=== PATIENT | male | born 1985 | race Caucasian/White ===

== ENCOUNTER 2020-11-01 09:46 | Emergency (ER) | payer OTHER ==
[2020-11-01 09:51] VITALS: RESP 18
--- NOTE | 2020-11-01 09:53 | ED ---
General Adult HPI - General Chief complaint: Dizziness Stated complaint: Headache, Dizziness Time Seen by Provider: 11/01/20 09:52 Source: patient Mode of arrival: ambulatory Limitations: no limitations - History of Present Illness Initial comments: 35yo male presenting for headahces. pt states that he has felt like he has "the flu without congestion" he states for the past 3 days he has been sleeping more, has some body aches. He states that he has had headaches, he states they are the wrost headaches he has had because he never has had headaches. Denies neck stiffness of fevers. Pt denies sudden onset of headache, pt denies stroke like symptoms such as speech or vision changes, sensation deficits, weakness of the extremities, or facial asymmetry. Patient states he feels light headed at times. Denies sensation that room is spinning, denies feeling off balance. Pt denies additional complaints he appears nontoxic on arrival no acute distress. headache currently 3/10 he states its very mild. - Related Data Home Medications Medication Instructions Recorded Confirmed No Known Home Medications 11/01/20 11/01/20 Allergies Allergy/AdvReac Type Severity Reaction Status Date / Time Sulfa (Sulfonamide Allergy Rash/Hives Verified 11/01/20 09:51 Antibiotics) Review of Systems ROS Statement: Those systems with pertinent positive or pertinent negative responses have been documented in the HPI. ROS Other: All systems not noted in ROS Statement are negative. Past Medical History Past Medical History: No Reported History History of Any Multi-Drug Resistant Organisms: None Reported Past Surgical History: Hernia Repair Past Psychological History: ADD/ADHD Smoking Status: Never smoker Past Alcohol Use History: None Reported Past Drug Use History: Marijuana General Exam - General Exam Comments Initial Comments: General: The patient is awake and alert, in no distress Eye: + 3mm pupils are equal, round and reactive to light, extra-ocular movements are intact. No nystagmus. There is normal conjunctiva bilaterally. No signs of icterus. Ears, nose, mouth and throat: There are moist mucous membranes and no oral lesions. Neck: The neck is supple, there is no tenderness or JVD. No nuchal rigidity. (-) brudzinskis and kernig Cardiovascular: There is a regular rate and rhythm. No murmur, rub or gallop is appreciated. Respiratory: Lungs are clear to auscultation, respirations are non-labored, breath sounds are equal. No wheezes, stridor, rales, or rhonchi. Gastrointestinal: Soft, non-distended, non-tender abdomen without masses or organomegaly noted. There is no rebound or guarding present. Musculoskeletal: Normal ROM, no tenderness. Strength 5/5. Sensation intact. Radial pulses equal bilaterally 2+. Neurological: A&O x 3. CN II-XII intact, no pronator drift, strength of UE and LE 5/5+ b/l veyr strong and equal. Gait without ataxia. Speech is normal. Skin: Skin is warm and dry and no rashes or lesions are noted. Psychiatric: Cooperative, appropriate mood & affect, normal judgment. Limitations: no limitations Course Vital Signs 11/01/20 11/01/20 11/01/20 09:47 11:15 12:00 Temperature 98.7 F 98.2 F Pulse Rate 73 75 76 Respiratory 18 18 18 Rate Blood Pressure 127/80 130/82 110/89 O2 Sat by Pulse 97 98 97 Oximetry Medical Decision Making - Medical Decision Making labs stable. EKG no acute findings. no CP or dyspnea. no focal neurological deficits. pt very coordinated. pt denies possible carbon monoxide sources. pt CT brain (-). pt covid (-). Discussed case with Dr Grant at this time we are agre eable to discharge with pcp f/u. return parameters discussed and patient discharged appearing well. - Lab Data Result diagrams: 11/01/20 10:19 11/01/20 10:19 Lab Results 11/01/20 11/01/20 11/01/20 Range/Units 10:19 10:19 10:19 WBC 4.5 (3.8-10.6) k/uL RBC 4.73 (4.30-5.90) m/uL Hgb 15.1 (13.0-17.5) gm/dL Hct 43.7 (39.0-53.0) % MCV 92.4 (80.0-100.0) fL MCH 32.0 (25.0-35.0) pg MCHC 34.6 (31.0-37.0) g/dL RDW 13.0 (11.5-15.5) % Plt Count 267 (150-450) k/uL MPV 6.9 Neutrophils % 52 % Lymphocytes % 34 % Monocytes % 8 % Eosinophils % 3 % Basophils % 1 % Neutrophils # 2.3 (1.3-7.7) k/uL Lymphocytes # 1.5 (1.0-4.8) k/uL Monocytes # 0.3 (0-1.0) k/uL Eosinophils # 0.1 (0-0.7) k/uL Basophils # 0.0 (0-0.2) k/uL Sodium 139 (137-145) mmol/L Potassium 4.0 (3.5-5.1) mmol/L Chloride 106 (98-107) mmol/L Carbon Dioxide 29 (22-30) mmol/L Anion Gap 4 mmol/L BUN 19 (9-20) mg/dL Creatinine 0.82 (0.66-1.25) mg/dL Est GFR (CKD-EPI)AfAm >90 (>60 ml/min/1.73 sqM) Est GFR (CKD-EPI)NonAf >90 (>60 ml/min/1.73 sqM) Glucose 98 (74-99) mg/dL Calcium 9.8 (8.4-10.2) mg/dL Total Bilirubin 0.6 (0.2-1.3) mg/dL AST 25 (17-59) U/L ALT 13 (4-49) U/L Alkaline Phosphatase 45 (38-126) U/L Total Protein 6.9 (6.3-8.2) g/dL Albumin 4.2 (3.5-5.0) g/dL Coronavirus (PCR) Not Detected (Not Detectd) Disposition Clinical Impression: Headache, Body aches, Light headed, Cough Disposition: HOME SELF-CARE Condition: Good Instructions (If sedation given, give patient instructions): Acute Headache (ED) Is patient prescribed a controlled substance at d/c from ED?: No Referrals: None,Stated [Primary Care Provider] - 1-2 days Time of Disposition: 11:27
--- NOTE | 2020-11-01 10:15 | CT ---
EXAMINATION TYPE: CT brain wo con DATE OF EXAM: 11/01/2020 COMPARISON: HISTORY: ROTHMAN, dizziness CT DLP: 1068.4 mGycm. Automated Exposure Control for Dose Reduction was Utilized. TECHNIQUE: CT scan of the head is performed without contrast. FINDINGS: There is no acute intracranial hemorrhage, mass effect, or midline shift identified. The ventricles and sulci are within normal limits in size. The globes are intact and the visualized sin uses are clear. IMPRESSION: No acute intracranial hemorrhage, mass effect, or midline shift is seen.
[2020-11-01] MEDS ORDERED: SODIUM CHLORIDE 0.9% 500 ML 500 ML IV ONE (10:17)
[2020-11-01 10:26] LABS: Basophils % (A) 1 %; Eosinophils # (A) 0.1 k/uL (0-0.7); Eosinophils % (A) 3 %; HCT 43.7 % (39.0-53.0); HGB 15.1 gm/dL (13.0-17.5); Lymphocytes # (A) 1.5 k/uL (1.0-4.8); Lymphocytes % (A) 34 %; MCHC 34.6 g/dL (31.0-37.0); MCV 92.4 fL (80.0-100.0); Mean Platelet Volume 6.9; Monocytes # (A) 0.3 k/uL (0-1.0); Monocytes % (A) 8 %; Neutrophils # (A) 2.3 k/uL (1.3-7.7); Neutrophils % (A) 52 %; Platelet Count 267 k/uL (150-450); RBC 4.73 m/uL (4.30-5.90); WBC 4.5 k/uL (3.8-10.6)
[2020-11-01] MEDS: KETOROLAC 15 MG/ML 1 ML VIAL IVP STA ×2 (10:26→10:31)
[2020-11-01 10:40] LABS: ALT 13 U/L (4-49); AST 25 U/L (17-59); African American GFR (CKD) >90 (>60 ml/min/1.73 sqM); Albumin 4.2 g/dL (3.5-5.0); Alkaline Phosphatase 45 U/L (38-126); Anion Gap 4 mmol/L; Blood Urea Nitrogen 19 mg/dL (9-20); Calcium 9.8 mg/dL (8.4-10.2); Carbon Dioxide 29 mmol/L (22-30); Chloride 106 mmol/L (98-107); Glucose 98 mg/dL (74-99); Non-African American GFR(CKD) >90 (>60 ml/min/1.73 sqM); Sodium 139 mmol/L (137-145); Total Bilirubin 0.6 mg/dL (0.2-1.3); Total Protein 6.9 g/dL (6.3-8.2)
[2020-11-01] MEDS ORDERED: KETOROLAC 15 MG/ML 1 ML VIAL IVP STA (11:25)
--- NOTE | 2020-11-01 11:50 | XR ---
EXAMINATION TYPE: XR chest 2V DATE OF EXAM: 11/01/2020 COMPARISON: NONE HISTORY: Dizziness, light headed TECHNIQUE: Frontal and lateral views of the chest are obtained. FINDINGS: There is no focal air space opacity, pleural effusion, or pneumothorax seen. The cardiac silhouette size is within normal limits. There are overlying cardiac leads. The osseous structures a re intact. IMPRESSION: No acute cardiopulmonary process.
[2020-11-01 12:03] VITALS: BP 110/89; PULSE 76; TEMP 98.2
== END 2020-11-01 12:00 | disposition home or self-care (01) ==
LOC: EC 09:46
DX: R51.9 Headache, unspecified (principal); R42 Dizziness and giddiness; R05 Cough; Z20.822 Contact with and (suspected) exposure to COVID-19; Z88.2 Allergy status to sulfonamides
CPT/HCPCS: 36415; 93005; 80053; 85025; 87635; 71046; 70450; 99284; 96374; 96361; J1885

== ENCOUNTER → 2020-12-24 | Outpatient (CLI) | payer OTHER ==
--- NOTE | 2020-12-24 14:10 | ECHOS ---
STRESS ECHOCARDIOGRAM LUMASON: N/A Vial INDICATIONS: Abnormal ECG, Intercostal pain MEDICATIONS: BASELINE HEART RATE: 74 BASELINE BLOOD PRESSURE: 106/69 MAXIMUM HEART RATE: 175 MAXIMUM BLOOD PRESSURE: 160/52 85% MPHR: 156 100% MPHR: 183 METS: 12.1 MAXIMUM STAGE REACHED: 4 TOTAL EXERCISE TIME: 12 minutes CLINICAL INFORMATION: Baseline rhythm sinus mechanism, rate 74, normal axis and intervals. Normal electrocardiogram. Baseline blood pressure 106/69 mmHg. Patient exercised on Guy protocol for 12 minutes reaching peak rate 175 beats per minute which is equal to 96% maximum predicted heart rate. Peak blood pressure 160/52 mmHg. Test was terminated secondary to fatigue. The patient had chest discomfort at peak exercise. Electrocardiograph monitoring revealed nondiagnostic electrocardiographic stress testing. There was evidence of right bundle branch block. Baseline echocardiogram revealed normal wall motion. At peak exercise, there was normal wall motion augmentation with no hypokinesis or dyskinesis. CONCLUSION: 1. Good exercise tolerance with normal electrocardiograph response to exercise and evidence of right bundle branch block. 2. Chest discomfort at peak exercise of unclear etiology. 3. Normal stress echocardiogram with no evidence of stress-induced ischemia. MMODL / IJN: [id number] /
--- NOTE | 2020-12-24 20:00 | ECHOF ---
Referral Reason:R07.782 intercostal pain MEASUREMENTS -------- HEIGHT: 198.1 cm WEIGHT: 108.9 kg BP: RVIDd: 2.8 cm (< 3.3) IVSd: 1.0 cm (0.6 - 1.1) LVIDd: 4.3 cm (3.9 - 5.3) LVPWd: 1.3 cm (0.6 - 1.1) IVSs: 1.3 cm LVIDs: 3.1 cm LVPWs: 1.4 cm LA Diam: 3.8 cm (2.7 - 3.8) LAESV Index (A-L): 24.08 ml/m Ao Diam: 3.5 cm (2.0 - 3.7) AV Cusp: 1.8 cm (1.5 - 2.6) LA Diam: 3.1 cm (2.7 - 3.8) MV EXCURSION: 23.991 mm (> 18.000) MV EF SLOPE: 99 mm/s (70 - 150) EPSS: 0.3 cm MV E José Luis: 0.79 m/s MV DecT: 184 ms MV A José Luis: 0.68 m/s MV E/A Ratio: 1.15 RAP: 5.00 mmHg RVSP: 22.41 mmHg FINDINGS -------- Sinus rhythm. This was a technically adequate study. LV size, wall thickness and systolic function are normal, with an EF greater than 55%. The left lee tricular size is normal. The right ventricle is normal in size. Normal LA size by volume 22+/-6 ml/m2. The right atrial size is normal. The aortic valve is trileaflet, and appears structurally normal. No aortic stenosis or regurgitation. The mitral valve is normal. Mild mitral regurgitation is present. The tricuspid valve appears structurally normal. Mild tricuspid regurgitation present. Right vent ricular systolic pressure is normal at < 35 mmHg. There is no evidence of pulmonary hypertension. There is no pulmonic regurgitation present. The aortic root size is normal. There is a trivial pericardial effusion present. CONCLUSIONS -------- 1. LV size, wall thickness and systolic function are normal, with an EF greater than 55%. 2. Normal LA size by volume 22+/-6 ml/m2. 3. The aortic valve is trileaflet, and appears structurally normal. No aortic stenosis or regurgitati on. 4. Mild mitral regurgitation is present. 5. Mild tricuspid regurgitation present. 6. There is a trivial pericardial effusion present. CLEATER: Madeleine Garcia RDCS
== END | disposition home or self-care (01) ==
LOC: RADNMMAIN 09:34
PROVIDERS: ATTEND Internal Medicine Cardiovascular Disease
DX: I08.1 Rheumatic disorders of both mitral and tricuspid valves (principal); I45.10 Unspecified right bundle-branch block; R07.89 Other chest pain
CPT/HCPCS: 93306; 93351